=== PATIENT | female | born 2000 | race Caucasian/White ===

== ENCOUNTER 2022-09-23 22:43 | Emergency (ER) | payer SELFPAY ==
[2022-09-23] MEDS ORDERED: Lidocaine 1% with EPINEPHrine 1:100,000 50 ML MDV INFILT ONE (22:45)
[2022-09-23] MEDS ORDERED: Bacitracin Oint 1 GM U/D Packet TOP ONE (22:45)
== END 2022-09-23 23:50 | disposition home or self-care (01) ==
LOC: LB.ED 22:43
DX: S01.01XA Laceration without foreign body of scalp, initial encounter (principal); W22.8XXA Striking against or struck by other objects, initial encounter
CPT/HCPCS: 12002; 99282; 99283